=== PATIENT | female | born 1975 | race Caucasian/White ===

== ENCOUNTER → 2023-08-14 11:25 | Outpatient (BNVA) | payer OTHER, MEDICAID, SELFPAY | PROVIDERS: PCP Nurse Practitioner Family; Visit Provider Podiatrist Foot & Ankle Surgery | DX: M72.2 Plantar fascial fibromatosis (principal); M79.671 Pain in right foot | CPT/HCPCS: 73630; 99203 ==

== ENCOUNTER → 2024-01-26 10:55 | Outpatient (BNVA) | payer OTHER, MEDICAID, SELFPAY | PROVIDERS: PCP Nurse Practitioner Family; Visit Provider Specialist | DX: M25.562 Pain in left knee (principal); G89.29 Other chronic pain | CPT/HCPCS: 73560; 73565 ==

== ENCOUNTER 2024-04-19 15:11 | Outpatient (CLI) | payer MEDICAID, SELFPAY ==
--- NOTE | 2024-04-19 15:13 | MR_ITS ---
WS: [id number] MRI LEFT KNEE HISTORY: left knee pain COMPARISON: 01/26/2024 Anterior cruciate ligament: Intact. Posterior cruciate ligament: Intact. Medial collateral ligament: Intact. Posterior lateral corner structures: Intact. Medial menisci: Intact. Normal signal, size and shape. Lateral meniscus: Intact. Normal signal, size and shape. Extensor mechanism: Distal quadriceps tendon and patellar tendons are intact. Fluid and soft tissue: No joint effusion. No Nance's cyst. Osseous and articular structures: Patellofemoral compartment: Normal. Medial compartment: No significant joint space narrowing. No meniscal tear identified. There is very slight blunting of the meniscal root but no tear confirmed. Focal increased T2 signal at the meniscal root attachment. Lateral compartment: Mild fissuring and thinning of the cartilage. No marrow edema. MR/MR knee LT wo con* [id number] IMPRESSION: 1. No ACL tear. 2. No meniscal tear identified. There is very slight blunting of the meniscal root of the medial compartment but no tear is identified. There is very slight increased T2 signal at the meniscal root attachment to the tibia. If symptoms p ersist this could be an area of concern. 3. No marrow edema or fracture.
== END 2024-04-19 15:12 | disposition home or self-care (01) ==
PROVIDERS: PCP Nurse Practitioner Family; Visit Provider Specialist
DX: M25.569 Pain in unspecified knee (principal)
CPT/HCPCS: 73721

== ENCOUNTER 2024-05-21 22:00 | Emergency (ER) | payer MEDICAID, SELFPAY ==
[2024-05-21 22:17] VITALS: BP 150/90; PULSE 76; RESP 15; TEMP 36.6; O2SAT 96; BMI 31.1
[2024-05-21 22:56] LABS: Bilirubin Urine Negative (Negative); Blood Urine Negative (Negative); Glucose Urine UA Negative (Normal); Ketones Urine Negative (Negative); Leukocyte Esterase Urine Trace (Negative); Nitrate Urine Negative (Negative); Protein Urine Negative (Negative); Specific Gravity, Urine 1.007 (1.005-1.030); Urine Appearance Clear (CLEAR); Urine Color Yellow (Yellow); Urobilinogen Urine 0.2 mg/dL (Negative)
[2024-05-21 23:00] LABS: Add Urine Microscopic? YES; Bacteria Urine None Seen /hpf; Hyaline Casts Urine 0-4 /lpf; RBC Urine 0-2 /hpf (0-2); Squamous Epithelial Cell Urine 0-5 /hpf (0-5); WBC Urine 0-5 /hpf (0-5)
--- NOTE | 2024-05-21 23:22 | ED_ITS ---
Documented by User: Medardo Rene DO 05/22/24 05:17 HPI - Female Genitourinary 2 General: Chief complaint: Urogenital-Female Stated complaint: poss UTI Time Seen by Provider: 05/21/24 23:19 History of Present Illness: 48-year-old female presents to the emerg ency room with complaint of back pain and UTI symptoms. Patient states that multiple UTIs in the past she was seen 3 to 4 days ago by her primary care doctor and started on Macrobid. She states her back pain is little bit worse she has not had any hematuria no fever sweats or chills. No history of kidney stones. Associated symptoms: Deny abdominal pain Related Data Home Medications Medication Instructions Recorded Confirmed duloxetine 60 mg capsule,delayed mg PO 08/14/23 04/21/24 release esomeprazole magnesium 20 mg mg PO 08/14/23 04/21/24 capsule,delayed release estradiol 1 mg tablet mg PO 08/14/23 04/21/24 folic acid 1 mg tablet PO 08/14/23 04/21/24 lisinopril 10 tab PO 08/14/23 04/21/24 mg-hydrochlorothiazide 12.5 mg tablet Allergies Allergy/AdvReac Type Severity Reaction Status Date / Time Sulfa (Sulfonamide Allergy rash Verified 05/21/24 22:25 Antibiotics) reglan Allergy Unknown Uncoded 05/21/24 22:25 Review of Systems 2 Const: Denies: fever(s) or chills Card: Denies: chest pain Resp: Denies: dyspnea GI: Denies: abdominal pain : Reports: flank pain, dysuria and urinary frequency; Denies: urinary urgency Musc: Denies: neck pain or back pain Skin/Breast: Denies: rash PFSH ED 2 PFSH: Social History Smoking and tobacco/nicotine status: unknown if used tobacco/nicotine Physical Exam 2 Const: COMMON NORMALS: no acute distress GENERAL APPEARANCE: cooperative and comfortable ORIENTATION/CONSCIOUSNESS: Yes awake, Yes oriented to person, Yes oriented to place and Yes oriented to time HENMT: COMMON NORMALS: normocephalic, atraumatic and hearing grossly normal bilaterally HEAD & SCALP: normocephalic and atraumatic Resp: COMMON NORMALS: normal respiratory effort, No retractions, No use of accessory muscles and clear to auscultation bilaterally AUSCULTATION: clear to auscultation bilaterally Cardio: COMMON NORMALS: regular rate, regular rhythm and No murmurs present (Cardio) RATE: regular rate RHYTHM: regular rhythm GI: COMMON NORMALS: Soft to palpation and No hepatosplenomegaly present A USCULTATION: Yes normoactive bowel sounds PALPATION: Yes Soft to palpation, No Tenderness to palpation present (GI), No Guarding due to palpation present (GI) and Yes No hepatosplenomegaly present : BLADDER/KIDNEY EXAM: Yes CVA tenderness Back/Pelvis: GENERAL BACK: Yes CVA tenderness Extremity: COMMON NORMALS: normal to inspection, capillary refill normal, no clubbing, cyanosis or edema, no calf tenderness and no pedal edema Neuro: SENSORIUM/ORIENTATION: Yes oriented to person, Yes oriented to place and Yes oriented to time Skin: COMMON NORMALS: no rashes or lesions noted GENERAL SKIN EXAM: no rashes or lesions noted Course 2 Vital Signs: Vital signs: Vital Signs Temperature 97.9 F 05/21/24 22:17 Pulse Rate 78 05/22/24 01:51 Respiratory Rate 16 05/22/24 01:51 Blood Pressure 128/89 05/22/24 01:51 Pulse Oximetry 95 05/22/24 01:51 Oxygen Delivery Me thod Room Air 05/22/24 00:43 MDM - Female Medical Decision Making Care signed out to Dr. Carrero at change of shift. See final notes for diagnosis and disposition. Care transferred over to myself at shift change, lab work was reviewed, all normal except trace leukocyte esterase. Patient was given 30 mg Toradol IM. Patient will be instructed to continue her Macrobid she is currently taking and we will wait until we get a culture data back to see if she needs her antibiotics changed. Lab Data 05/21/24 23:40 05/21/24 23:40 Laboratory Results WBC 8.42 10^3/uL (3.29-11.43) 05/21/24 23:40 RBC 4.63 10^6/uL (3.85-5.65) 05/21/24 23:40 Hgb 13.20 g/dL (11.27-16.99) 05/21/24 23:40 Hct 38.5 % (36-47) 05/21/24 23:40 MCV 83.2 fl (85-98) L 05/21/24 23:40 MCH 28.5 pg (27-33) 05/21/24 23:40 MCHC 34.3 g/dL (30-55) 05/21/24 23:40 RDW 13.2 % (12.1-15.1) 05/21/24 23:40 Plt Count 368 10^3/cmm (157-399) 05/21/24 23:40 MPV 9.3 fL (7.4-10.4) 05/21/24 23:40 Neut % (Auto) 44.1 % 05/21/24 23:40 Lymph % (Auto) 41.2 % 05/21/24 23:40 [place] % (Auto) 5.1 % 05/21/24 23:40 Eos % (Auto) 7.7 % 05/21/24 23:40 Baso % (Auto) 1.5 % 05/21/24 23:40 Neut # (Auto) 3.71 10^3/uL (1.8-7.7) 05/21/24 23:40 Lymph # (Auto) 3.5 10^3/uL (0.8-4.8) 05/21/24 23:40 [place] # (Auto) 0.4 10^3/uL (0.2-0.9) 05/21/24 23:40 Eos # (Auto) 0.7 10^3/uL (0.0-0.8) 05/21/24 23:40 Baso # (Auto) 0.1 10^3/uL (0.0-0.1) 05/21/24 23:40 Nucleated RBC % (auto) 0 % 05/21/24 23:40 Nucleated RBCs # 0.0 /100WBC 05/21/24 23:40 Sodium 137 mmol/L (136-145) 05/21/24 23:40 Potassium 3.7 mmol/L (3.5-5.1) 05/21/24 23:40 Chloride 101 mmol/L (98-107) 05/21/24 23:40 Carbon Dioxide 27 mmol/L (22-29) 05/21/24 23:40 Anion Gap 12.7 (5-19) 05/21/24 23:40 BUN 14 mg/dL (6-20) 05/21/24 23:40 Creatinine 0.6 mg/dL (0.5-0.9) 05/21/24 23:40 GFR Calculation 107.2 mL/min (90-130) 05/21/24 23:40 Glucose 104 mg/dL (65-115) 05/21/24 23:40 Calculated Osmolality 285 mOsm/kg (285-295) 05/21/24 23:40 Calcium 9.2 mg/dL (8.5-10.5) 05/21/24 23:40 Total Bilirubin 0.2 mg/dL (0.15-1.2) 05/21/24 23:40 AST 17 U/L (0-32) 05/21/24 23:40 ALT 19 U/L (0-33) 05/21/24 23:40 Alkaline Phosphatase 103 U/L (35-105) 05/21/24 23:40 Total Protein 6.6 g/dL (6.6-8.7) 05/21/24 23:40 Albumin 4.2 g/dL (3.5-5.2) 05/21/24 23:40 Globulin 2.4 g/dL (1.3-4.6) 05/21/24 23:40 Urine Color Yellow (Yellow) 05/21/24 22:23 Urine Appearance Clear (CLEAR) 05/21/24 22:23 Urine pH 7.0 (5-7) 05/21/24 22:23 Ur Specific [place] 1.007 (1.005-1.030) 05/21/24 22:23 Urine Protein Negative (Negative) 05/21/24 22: Urine Glucose (UA) Negative (Normal) 05/21/24 22: Urine Ketones Negative (Negative) 05/21/24 22:23 Urine Blood Negative (Negative) 05/21/24 22: Urine Nitrate Negative (Negative) 05/21/24 22: Urine Bilirubin Negative (Negative) 05/21/24 22: Urine Urobilinogen 0.2 mg/dL (Negative) 05/21/24 22:23 Ur Leukocyte Esterase Trace (Negative) A 05/21/24 22: Urine RBC 0-2 /hpf (0-2) 05/21/24 22:23 Urine WBC 0-5 /hpf (0-5) 05/21/24 22:23 Ur Squamous Epith Cells 0-5 /hpf (0-5) 05/21/24 22:23 Amorphous Sediment Not Reportable 05/21/24 22:23 Urine Bacteria None seen /hpf (NONE) 05/21/24 22:23 Hyaline Casts 0-4 /lpf H 05/21/24 22:23 Discharge Plan Discharge Patient Disposition: Home Clinical Impression: Urinary tract infection Qualifiers: Urinary tract infection type: acute cystitis Hematuria presence: without hematuria Qualified Code(s): N30.00 - Acute cystitis without hematuria Condition: Stable Prescriptions: No Action estradiol 1 mg tablet PO esomeprazole magnesium 20 mg capsule,delayed release(DR/EC) PO folic acid 1 mg tablet PO lisinopril-hydrochlorothiazide 10-12.5 mg tablet PO duloxetine 60 mg capsule,delayed release(DR/EC) PO Discharge Orders: Discharge ED (Routine); Ordered 05/22/24 Ordered By: Maxim Carrero Referrals: Jacki Leigh APN [Primary Care Provider] - 1 week Patient Instructions: Urinary Tract Infection in Women (DC) Activity Restrictions/Additional Instructions: Evaluation ER showed trace leukocyte Estrace which is bacterial byproducts. This is the lowest amount that can be picked up. You are currently on Macrobid which should treat your urinary tract infection. A culture should be performed on your urine to see which organism grows out and therefore which antibiotic would be most appropriate. These take 2 to 3 days to get the results back you may be called with a change in antibiotics if needed.. Coding Level of Care Code ED Brusher Hand for Chg Fwd Documented by User: Maxim Carrero DO 05/22/24 03:10 HPI - Female Genitourinary 2 General: Chief complaint: Urogenital-Female Stated complaint: poss UTI Time Seen by Provider: 05/21/24 23:19 Related Data Home Medications Medication Instructions Recorded Confirmed duloxetine 60 mg capsule,delayed mg PO 08/14/23 04/21/24 release esomeprazole magnesium 20 mg mg PO 08/14/23 04/21/24 capsule,delayed release estradiol 1 mg tablet mg PO 08/14/23 04/21/24 folic acid 1 mg tablet PO 08/14/23 04/21/24 lisinopril 10 tab PO 08/14/23 04/21/24 mg-hydrochlorothiazide 12.5 mg tablet Allergies Allergy/AdvReac Type Severity Reaction Status Date / Time Sulfa (Sulfonamide Allergy rash Verified 05/21/24 22:25 Antibiotics) reglan Allergy Unknown Uncoded 05/21/24 22:25 PFSH ED 2 PFSH: Social History Smoking and tobacco/nicotine status: unknown if used tobacco/nicotine Course 2 Vital Signs: Vital signs: Vital Signs Temperature 97.9 F 05/21/24 22:17 Pulse Rate 78 05/22/24 01:51 Respiratory Rate 16 05/22/24 01:51 Blood Pressure 128/89 05/22/24 01:51 Pulse Oximetry 95 05/22/24 01:51 Oxygen Delivery Me thod Room Air 05/22/24 00:43 MDM - Female Medical Decision Making Care transferred over to myself at shift change, lab work was reviewed, all normal except trace leukocyte esterase. Patient was given 30 mg Toradol IM. Patient will be instructed to continue her Macrobid she is currently taking and we will wait until we get a culture data back to see if she needs her antibiotics changed. Lab Data 05/21/24 23:40 05/21/24 23:40 Laboratory Results WBC 8.42 10^3/uL (3.29-11.43) 05/21/24 23:40 RBC 4.63 10^6/uL (3.85-5.65) 05/21/24 23:40 Hgb 13.20 g/dL (11.27-16.99) 05/21/24 23:40 Hct 38.5 % (36-47) 05/21/24 23:40 MCV 83.2 fl (85-98) L 05/21/24 23:40 MCH 28.5 pg (27-33) 05/21/24 23:40 MCHC 34.3 g/dL (30-55) 05/21/24 23:40 RDW 13.2 % (12.1-15.1) 05/21/24 23:40 Plt Count 368 10^3/cmm (157-399) 05/21/24 23:40 MPV 9.3 fL (7.4-10.4) 05/21/24 23:40 Neut % (Auto) 44.1 % 05/21/24 23:40 Lymph % (Auto) 41.2 % 05/21/24 23:40 [place] % (Auto) 5.1 % 05/21/24 23:40 Eos % (Auto) 7.7 % 05/21/24 23:40 Baso % (Auto) 1.5 % 05/21/24 23:40 Neut # (Auto) 3.71 10^3/uL (1.8-7.7) 05/21/24 23:40 Lymph # (Auto) 3.5 10^3/uL (0.8-4.8) 05/21/24 23:40 [place] # (Auto) 0.4 10^3/uL (0.2-0.9) 05/21/24 23:40 Eos # (Auto) 0.7 10^3/uL (0.0-0.8) 05/21/24 23:40 Baso # (Auto) 0.1 10^3/uL (0.0-0.1) 05/21/24 23:40 Nucleated RBC % (auto) 0 % 05/21/24 23:40 Nucleated RBCs # 0.0 /100WBC 05/21/24 23:40 Sodium 137 mmol/L (136-145) 05/21/24 23:40 Potassium 3.7 mmol/L (3.5-5.1) 05/21/24 23:40 Chloride 101 mmol/L (98-107) 05/21/24 23:40 Carbon Dioxide 27 mmol/L (22-29) 05/21/24 23:40 Anion Gap 12.7 (5-19) 05/21/24 23:40 BUN 14 mg/dL (6-20) 05/21/24 23:40 Creatinine 0.6 mg/dL (0.5-0.9) 05/21/24 23:40 GFR Calculation 107.2 mL/min (90-130) 05/21/24 23:40 Glucose 104 mg/dL (65-115) 05/21/24 23:40 Calculated Osmolality 285 mOsm/kg (285-295) 05/21/24 23:40 Calcium 9.2 mg/dL (8.5-10.5) 05/21/24 23:40 Total Bilirubin 0.2 mg/dL (0.15-1.2) 05/21/24 23:40 AST 17 U/L (0-32) 05/21/24 23:40 ALT 19 U/L (0-33) 05/21/24 23:40 Alkaline Phosphatase 103 U/L (35-105) 05/21/24 23:40 Total Protein 6.6 g/dL (6.6-8.7) 05/21/24 23:40 Albumin 4.2 g/dL (3.5-5.2) 05/21/24 23:40 Globulin 2.4 g/dL (1.3-4.6) 05/21/24 23:40 Urine Color Yellow (Yellow) 05/21/24 22:23 Urine Appearance Clear (CLEAR) 05/21/24 22:23 Urine pH 7.0 (5-7) 05/21/24 22:23 Ur Specific [place] 1.007 (1.005-1.030) 05/21/24 22:23 Urine Protein Negative (Negative) 05/21/24 22:23 Urine Glucose (UA) Negative (Normal) 05/21/24 22:23 Urine Ketones Negative (Negative) 05/21/24 22:23 Urine Blood Negative (Negative) 05/21/24 22:23 Urine Nitrate Negative (Negative) 05/21/24 22:23 Urine Bilirubin Negative (Negative) 05/21/24 22:23 Urine Urobilinogen 0.2 mg/dL (Negative) 05/21/24 22:23 Ur Leukocyte Esterase Trace (Negative) A 05/21/24 22:23 Urine RBC 0-2 /hpf (0-2) 05/21/24 22:23 Urine WBC 0-5 /hpf (0-5) 05/21/24 22:23 Ur Squamous Epith Cells 0-5 /hpf (0-5) 05/21/24 22:23 Amorphous Sediment Not Reportable 05/21/24 22:23 Urine Bacteria None seen /hpf (NONE) 05/21/24 22:23 Hyaline Casts 0-4 /lpf H 05/21/24 22:23 All radiology interpretation(s) finalized by discharge Discharge Plan Discharge Patient Disposition: Home Clinical Impression: Urinary tract infection Qualifiers: Urinary tract infection type: acute cystitis Hematuria presence: without hematuria Qualified Code(s): N30.00 - Acute cystitis without hematuria Condition: Stable Prescriptions: No Action estradiol 1 mg tablet PO esomeprazole magnesium 20 mg capsule,delayed release(DR/EC) PO folic acid 1 mg tablet PO lisinopril-hydrochlorothiazide 10-12.5 mg tablet PO duloxetine 60 mg capsule,delayed release(DR/EC) PO Discharge Orders: Discharge ED (Routine); Ordered 05/22/24 Ordered By: Maxim Carrero Referrals: Jacki Leigh APN [Primary Care Provider] - 1 week Patient Instructions: Urinary Tract Infection in Women (DC) Activity Restrictions/Additional Instructions: Evaluation ER showed trace leukocyte Estrace which is bacterial byproducts. This is the lowest amount that can be picked up. You are currently on Macrobid which should treat your urinary tract infection. A culture should be performed on your urine to see which organism grows out and therefore which antibiotic would be most appropriate. These take 2 to 3 days to get the results back you may be called with a change in antibiotics if needed.. Coding Level of Care Code ED Brusher Hand for [place] Cohen
[2024-05-21 23:55] LABS: Basophils # 0.1 10^3/uL (0.0-0.1); Basophils % 1.5 %; Eosinophils # 0.7 10^3/uL (0.0-0.8); Eosinophils % 7.7 %; Hematocrit 38.5 % (36-47); Lymphocytes # 3.5 10^3/uL (0.8-4.8); Lymphocytes % 41.2 %; Mean Corpuscular HGB Conc 34.3 g/dL (30-55); Mean Corpuscular Hemoglobin 28.5 pg (27-33); Mean Corpuscular Volume 83.2 fl (85-98); Mean Platelet Volume 9.3 fL (7.4-10.4); Monocytes # 0.4 10^3/uL (0.2-0.9); Monocytes % 5.1 %; Neutrophils # 3.71 10^3/uL (1.8-7.7); Neutrophils % 44.1 %; Nucleated Red Blood Cells % 0 %; Platelet Count 368 10^3/cmm (157-399); Red Blood Count 4.63 10^6/uL (3.85-5.65); Red Cell Distribution Width 13.2 % (12.1-15.1); White Blood Count 8.42 10^3/uL (3.29-11.43)
[2024-05-22] VITALS: BP 127/85; PULSE 76; RESP 16; O2SAT 96
[2024-05-22 00:06] LABS: Alanine Aminotransferase 19 U/L (0-33); Albumin Level 4.2 g/dL (3.5-5.2); Alkaline Phosphatase 103 U/L (35-105); Anion Gap 12.7 (5-19); Aspartate Amino Transferase 17 U/L (0-32); Blood Urea Nitrogen 14 mg/dL (6-20); Calcium 9.2 mg/dL (8.5-10.5); Carbon Dioxide 27 mmol/L (22-29); Chloride 101 mmol/L (98-107); Creatinine Clr Calc Pharmacy 115.9634; Globulin 2.4 g/dL (1.3-4.6); Glomerular Filtration Rate 107.2 mL/min (90-130); Glucose 104 mg/dL (65-115); Osmolality Calculated 285 mOsm/kg (285-295); Potassium 3.7 mmol/L (3.5-5.1); Sodium 137 mmol/L (136-145); Total Bilirubin 0.2 mg/dL (0.15-1.2); Total Protein 6.6 g/dL (6.6-8.7)
[2024-05-22] MEDS: ketorolac 30 mg/mL INJ IVP (00:16)
[2024-05-22 00:43] VITALS: BP 129/94; PULSE 78; RESP 16; O2SAT 96
[2024-05-22 01:51] VITALS: BP 128/89; PULSE 78; RESP 16; O2SAT 95
== END 2024-05-22 01:53 | disposition home or self-care (01) ==
PROVIDERS: Physician Assistant; Emergency Provider Family Medicine; PCP Nurse Practitioner Family
DX: N30.00 Acute cystitis without hematuria (principal)
CPT/HCPCS: 36415; 80053; 81001; 85025; 96374; 99284; J1885

== ENCOUNTER 2024-11-11 13:07 | Emergency (ER) | payer MEDICAID, SELFPAY ==
[2024-11-11] VITALS (14 sets, daily range): BP systolic 92–120; BP diastolic 66–86; PULSE 71–105; RESP 16–18; TEMP 36.6; O2SAT 91–98
--- NOTE | 2024-11-11 13:10 | W.ED.ABDPA2 ---
Documented by User: [email or web address] Cox 11/11/24 19:50 HPI - Abdominal Pain General: Chief Complaint: Abdominal Pain Stated Complaint: abd pain Time Seen by Provider: 11/11/24 13:07 Source: patient Mode of arrival: EMS Limitations: no limitations History of Present Illness: Patient is a 49-year-old female who presents to the ED via EMS for chief complaint of upper abdominal pain. She states the pain started a couple of days ago and has gotten worse. She has accompanying SOB she states from the pain. Last bowel movement was approximately 2 days ago and was normal, no blood present, no straining reported. She has not had another bowel movement since and has not passed flatus since the last bowel movement. Denies increased burping. Also admits to having difficulty urinating and reports dysuria and her urine looking red this morning. She has a history of cholangiocarcinoma stage IV which she was diagnosed with in July. It has metastasized to her lung, liver and peritoneum. She is currently receiving chemo treatment, but has missed her last 2 rounds due to recent illness/pneumonia-taking Doxycycline/Augmentin and has one day left. She chronically takes opiates due to cancer related pain. MD elicited complaint: abdominal pain Pertinent past history: other (stage IV cholangiocarcinoma) Onset (ago): day(s) Pain Consistency: constant Location: Diffuse Severity: severe Quality: aching and fullness Radiation: none Migration to: no migration Exacerbating factors: nothing Relieving factors: nothing Associated Symptoms: Reports belching, constipation, hematuria and nausea; Denies chills, fever(s), hematochezia, hematemesis, melena and vomiting Related Data Home Medications ?Medication ?Instructions ?Recorded ?Confirmed duloxetine 60 mg capsule,delayed 60 mg PO BID 08/14/23 11/11/24 release pantoprazole 40 mg tablet,delayed 40 mg PO BID 08/23/24 11/11/24 release trazodone 150 mg tablet 150 mg PO BEDTIME 08/23/24 11/11/24 amoxicillin 875 mg-potassium 1 tab PO BID 11/11/24 11/11/24 clavulanate 125 mg tablet docusate sodium 100 mg capsule 100 - 400 mg PO DAILY PRN 11/11/24 11/11/24 (Colace) Constipation doxycycline hyclate 100 mg capsule 100 mg PO BID 11/11/24 11/11/24 hydrocortisone 2.5 % topical cream See Rx Instructions .Route .COMPLEX 11/11/24 11/11/24 with perineal applicator (Procto-Med HC) olanzapine 2.5 mg tablet 2.5 mg PO BEDTIME 11/11/24 11/11/24 oxycodone 10 mg tablet 10 mg PO Q4H PRN Severe Pain 11/11/24 11/11/24 (Scale Score 8-10) oxycodone 30 mg tablet,crush 30 mg PO BID 11/11/24 11/11/24 resistant,extended release 12 hr (OxyContin) potassium chloride 10 mEq 10 meq PO BID PRN low potassium 11/11/24 11/11/24 tablet,extended release(part/cryst) promethazine 12.5 mg rectal See Rx Instructions .Route 11/11/24 11/11/24 suppository .COMPLEX PRN Nausea sennosides 8.6 mg tablet (Senokot) 8.6 mg PO DAILY PRN Constipation 11/11/24 11/11/24 triamcinolone acetonide 0.1 % 1 applic topical BID PRN Skin 11/11/24 11/11/24 topical cream Irritation Allergies Allergy/AdvReac Type Severity Reaction Status Date / Time Sulfa (Sulfonamide Allergy rash Verified 08/25/24 10:51 Antibiotics) reglan Allergy Unknown Uncoded 08/25/24 10:51 Review of Systems Const: Reports: fatigue and malaise; Denies: fever(s), chills or body aches GI: Reports: abdominal pain, nausea, constipation and belching; Denies: vomiting, hematemesis, hematochezia or melena : Reports: hematuria; Denies: flank pain, difficulty voiding, vaginal bleeding or vaginal discharge Musc: Denies: neck pain, back pain, extremity pain, extremity swelling or joint swelling Skin/Breast: Denies: rash Neuro: Denies: headache(s), numbness in extremities, weakness in extremities, sensory changes or dizziness PFSH ED PFSH: Social History Smoking and tobacco/nicotine status: never used tobacco/nicotine Physical Exam Const: COMMON NORMALS: average body habitus, patient oriented x3, no limitations, alert and well nourished GENERAL APPEARANCE: cooperative ORIENTATION/CONSCIOUSNESS: Yes awake, Yes oriented to person, Yes oriented to place and Yes oriented to time HENMT: COMMON NORMALS: normocephalic and atraumatic HEAD & SCALP: normal to inspection, normocephalic and atraumatic Eye: COMMON NORMALS: no scleral icterus Neck/C-Spine: COMMON NORMALS: full ROM, no lymphadenopathy, supple and no meningeal signs Chest: COMMONS NORMALS: normal inspection of the chest Resp: COMMON NORMALS: normal respiratory effort and clear to auscultation bilaterally AUSCULTATION: clear to auscultation bilaterally Cardio: COMMON NORMALS: regular rate and regular rhythm RATE: regular rate RHYTHM: regular rhythm GI: INSPECTION: Yes abdominal distension AUSCULTATION: Yes Hypoactive bowel sounds present PALPATION: Yes Tenderness to palpation present (GI) : COMMON NORMALS: Yes no CVA tenderness BLADDER/KIDNEY EXAM: Yes no CVA tenderness Back/Pelvis: COMMON NORMALS: no CVA tenderness and thoracic and lumbar spine normal to inspection Extremity: COMMON NORMALS: normal to inspection GENERAL: Yes normal exam except as noted Neuro: COMMON NORMALS: patient oriented x3, moves all extremities, no focal motor deficits, no sensory deficits noted and gait normal SENSORIUM/ORIENTATION: Yes alert, Yes oriented to person, Yes oriented to place and Yes oriented to time MENINGEAL SIGNS: Yes no meningeal signs Skin: COMMON NORMALS: no rashes or lesions noted GENERAL SKIN EXAM: no rashes or lesions noted Course Consultations: Consultation #1: Dr. Vu-reviewed CT scan-states there is no intervention feasible from a general surgery standpoint; will come consult on the patient and place consult note Vital Signs: Vital signs: Vital Signs Temperature 97.8 F 11/11/24 13:09 Pulse Rate 61 11/12/24 02:59 Respiratory Rate 16 11/11/24 21:42 Blood Pressure 95/66 11/12/24 02:59 Pulse Oximetry 95 11/12/24 02:59 Oxygen Delivery Me thod Room Air 11/11/24 16:43 MDM - Abdominal Pain Medical Decision Making Patient is a 49-year-old female with known extensive metastatic cholangiocarcinoma (stage IV). She is currently undergoing chemotherapy by her oncology team at [facility] in [place], [place]. she is here today complaining of severe abdominal pain, inability to pass bowel or flatulence, nausea, and belching. CT scan showing extensive disease as well as a concern for descending colonic obstruction-recommendations to correlate clinically. She was consulted on by general surgery here, Dr. Gibson. He stated there was nothing from a surgical standpoint that could be done given the extensiveness of her disease. He did feel like with her clinical presentation and CT findings, this most likely represented a partial bowel obstruction although stated it was inevitable that she would probably progress to a full obstruction. Discussed placing the patient on hospice. When I mentioned this to patient she is absolutely not ready to accept this. She is adamant she wants to be transferred to [place] where her oncology team is. I told patient this would be a transfer by patient request and she might be responsible for the cost of transfer-she is agreeable to this. I spoke to her oncologist, Dr. Hoyos as well as the oncology hospitalist, Dr. Kennedy both of which would like her to go through the emergency department. I spoke to Dr. Rivera at the [facility] ED who is accepting the patient. Medical Records I reviewed the patient's medical records. Lab Data I reviewed the patient's lab results. 11/11/24 13:39 11/11/24 13:39 Labs/Radiology: Radiology Impressions Abdomen/Pelvis CT 11/11/24 13:44 IMPRESSION: 1. Omental caking, multiple abdominal and pelvic peritoneal implants. The findings consistent with known peritoneal metastatic disease. 2. Left lobe lateral segment intrahepatic biliary ductal dilatation. 3. Superior left lobe lateral segment hepatic mass. 4. Multiple additional hepatic lesions of uncertain etiology. Correlation with prior studies or MRI recommended for further evaluation. 5. Prior cholecystectomy. 6. Descending colonic functional obstruction is difficult to exclude. Clinical correlation is recommended. 7. Moderate abdominal, large volume pelvic ascites. Chest X-Ray 11/11/24 14:35 Impression: Negative chest. Laboratory Results WBC 16.84 10^3/uL (3.29-11.43) H 11/11/24 13:39 RBC 3.68 10^6/uL (3.85-5.65) L 11/11/24 13:39 Hgb 9.70 g/dL (11.27-16.99) L 11/11/24 13:39 Hct 31.0 % (36-47) L 11/11/24 13:39 MCV 84.2 fl (85-98) L 11/11/24 13:39 MCH 26.4 pg (27-33) L 11/11/24 13:39 MCHC 31.3 g/dL (30-55) 11/11/24 13:39 RDW 16.9 % (12.1-15.1) H 11/11/24 13:39 Plt Count 595 10^3/cmm (157-399) H 11/11/24 13:39 MPV 9.8 fL (7.4-10.4) 11/11/24 13:39 Neut % (Auto) 71.7 % 11/11/24 13:39 Lymph % (Auto) 16.4 % 11/11/24 13:39 Blaine % (Auto) 9.0 % 11/11/24 13:39 Eos % (Auto) 0.7 % 11/11/24 13:39 Baso % (Auto) 1.3 % 11/11/24 13:39 Neut # (Auto) 12.07 10^3/uL (1.8-7.7) H 11/11/24 13:39 Lymph # (Auto) 2.8 10^3/uL (0.8-4.8) 11/11/24 13:39 Blaine # (Auto) 1.5 10^3/uL (0.2-0.9) H 11/11/24 13:39 Eos # (Auto) 0.1 10^3/uL (0.0-0.8) 11/11/24 13:39 Baso # (Auto) 0.2 10^3/uL (0.0-0.1) H 11/11/24 13:39 Nucleated RBC % (auto) 0 % 11/11/24 13:39 Nucleated RBCs # 0.0 /100WBC 11/11/24 13:39 PT 14.00 SECONDS (12.1-14.9) 11/11/24 13:39 INR 1.01 (0.8-1.2) 11/11/24 13:39 Sodium 134 mmol/L (136-145) L 11/11/24 13:39 Potassium 3.8 mmol/L (3.5-5.1) 11/11/24 13:39 Chloride 94 mmol/L (98-107) L 11/11/24 13:39 Carbon Dioxide 23 mmol/L (22-29) 11/11/24 13:39 Anion Gap 20.8 (5-19) H 11/11/24 13:39 BUN 9 mg/dL (6-20) 11/11/24 13:39 Creatinine 0.5 mg/dL (0.5-0.9) 11/11/24 13:39 GFR Calculation 131.7 mL/min (90-130) H 11/11/24 13:39 Glucose 120 mg/dL (65-115) H 11/11/24 13:39 Calculated Osmolality 278 mOsm/kg (285-295) L 11/11/24 13:39 Lactic Acid 0.8 mmol/L (0.5-2.2) 11/11/24 13:39 Calcium 9.0 mg/dL (8.5-10.5) 11/11/24 13:39 Total Bilirubin 0.4 mg/dL (0.15-1.2) 11/11/24 13:39 AST 20 U/L (0-32) 11/11/24 13:39 ALT 10 U/L (0-33) 11/11/24 13:39 Alkaline Phosphatase 232 U/L (35-105) H 11/11/24 13:39 Total Protein 7.3 g/dL (6.6-8.7) 11/11/24 13:39 Albumin 3.2 g/dL (3.5-5.2) L 11/11/24 13:39 Globulin 4.1 g/dL (1.3-4.6) 11/11/24 13:39 Lipase 16 U/L (13-60) 11/11/24 13:39 HCG, Qual Negative (Negative) 11/11/24 13:29 Urine Color Yellow (Yellow) 11/11/24 15:18 Urine Appearance Clear (CLEAR) 11/11/24 15:18 Urine pH 6.5 (5-7) 11/11/24 15:18 Ur Specific [place] 1.012 (1.005-1.030) 11/11/24 15:18 Urine Protein Trace (Negative) A 11/11/24 15:18 Urine Glucose (UA) Negative (Normal) 11/11/24 15:18 Urine Ketones Negative (Negative) 11/11/24 15:18 Urine Blood Negative (Negative) 11/11/24 15:18 Urine Nitrate Negative (Negative) 11/11/24 15:18 Urine Bilirubin Negative (Negative) 11/11/24 15:18 Urine Urobilinogen 1.0 mg/dL (Negative) 11/11/24 15:18 Ur Leukocyte Esterase Trace (Negative) A 11/11/24 15:18 Urine RBC 0-2 /hpf (0-2) 11/11/24 15:18 Urine WBC 0-5 /hpf (0-5) 11/11/24 15:18 Ur Squamous Epith Cells 0-5 /hpf (0-5) 11/11/24 15:18 Amorphous Sediment Not Reportable 11/11/24 15:18 Urine Bacteria None seen /hpf (NONE) 11/11/24 15:18 Hyaline Casts 1.65 /lpf 11/11/24 15:18 All radiology interpretation(s) finalized by discharge Discharge Plan Discharge Patient Disposition: Xfer Short-Term Hosp Clinical Impression: Metastatic cholangiocarcinoma, Obstruction of large intestine due to peritoneal adhesions Condition: Stable Referrals: Jacki Leigh APN [Primary Care Provider, [facility]] Print Language: Macedonian Coding Level of Care Code ED Rigging Up Worker for Chg Fwd Documented by User: Medardo Rene DO 11/12/24 06:41 HPI - Abdominal Pain General: Chief Complaint: Abdominal Pain Stated Complaint: abd pain Time Seen by Provider: 11/11/24 13:07 Related Data Home Medications ?Medication ?Instructions ?Recorded ?Confirmed duloxetine 60 mg capsule,delayed 60 mg PO BID 08/14/23 11/11/24 release pantoprazole 40 mg tablet,delayed 40 mg PO BID 08/23/24 11/11/24 release trazodone 150 mg tablet 150 mg PO BEDTIME 08/23/24 11/11/24 amoxicillin 875 mg-potassium 1 tab PO BID 11/11/24 11/11/24 clavulanate 125 mg tablet docusate sodium 100 mg capsule 100 - 400 mg PO DAILY PRN 11/11/24 11/11/24 (Colace) Constipation doxycycline hyclate 100 mg capsule 100 mg PO BID 11/11/24 11/11/24 hydrocortisone 2.5 % topical cream See Rx Instructions .Route .COMPLEX 11/11/24 11/11/24 with perineal applicator (Procto-Med HC) olanzapine 2.5 mg tablet 2.5 mg PO BEDTIME 11/11/24 11/11/24 oxycodone 10 mg tablet 10 mg PO Q4H PRN Severe Pain 11/11/24 11/11/24 (Scale Score 8-10) oxycodone 30 mg tablet,crush 30 mg PO BID 11/11/24 11/11/24 resistant,extended release 12 hr (OxyContin) potassium chloride 10 mEq 10 meq PO BID PRN low potassium 11/11/24 11/11/24 tablet,extended release(part/cryst) promethazine 12.5 mg rectal See Rx Instructions .Route 11/11/24 11/11/24 suppository .COMPLEX PRN Nausea sennosides 8.6 mg tablet (Senokot) 8.6 mg PO DAILY PRN Constipation 11/11/24 11/11/24 triamcinolone acetonide 0.1 % 1 applic topical BID PRN Skin 11/11/24 11/11/24 topical cream Irritation Allergies Allergy/AdvReac Type Severity Reaction Status Date / Time Sulfa (Sulfonamide Allergy rash Verified 08/25/24 10:51 Antibiotics) reglan Allergy Unknown Uncoded 08/25/24 10:51 [facility] ED PFSH: Social History Smoking and tobacco/nicotine status: never used tobacco/nicotine Course Vital Signs: Vital signs: Vital Signs Temperature 97.8 F 11/11/24 13:09 Pulse Rate 61 11/12/24 02:59 Respiratory Rate 16 11/11/24 21:42 Blood Pressure 95/66 11/12/24 02:59 Pulse Oximetry 95 11/12/24 02:59 Oxygen Delivery Me thod Room Air 11/11/24 16:43 MDM - Abdominal Pain Medical Decision Making Patient is a 49-year-old female with known extensive metastatic cholangiocarcinoma (stage IV). She is currently undergoing chemotherapy by her oncology team at [facility] in [place], [place]. she is here today complaining of severe abdominal pain, inability to pass bowel or flatulence, nausea, and belching. CT scan showing extensive disease as well as a concern for descending colonic obstruction-recommendations to correlate clinically. She was consulted on by general surgery here, Dr. Gibson. He stated there was nothing from a surgical standpoint that could be done given the extensiveness of her disease. He did feel like with her clinical presentation and CT findings, this most likely represented a partial bowel obstruction although stated it was inevitable that she would probably progress to a full obstruction. Discussed placing the patient on hospice. When I mentioned this to patient she is absolutely not ready to accept this. She is adamant she wants to be transferred to [place] where her oncology team is. I told patient this would be a transfer by patient request and she might be responsible for the cost of transfer-she is agreeable to this. I spoke to her oncologist, Dr. Hoyos as well as the oncology hospitalist, Dr. Kennedy both of which would like her to go through the emergency department. I spoke to Dr. Rivera at the [facility] ED who is accepting the patient. Chart reviewed and patient discussed with midlevel. Agree with assessment and plan. Lab Data 11/11/24 13:39 11/11/24 13:39 Labs/Radiology: Radiology Impressions Abdomen/Pelvis CT 11/11/24 13:44 IMPRESSION: 1. Omental caking, multiple abdominal and pelvic peritoneal implants. The findings consistent with known peritoneal metastatic disease. 2. Left lobe lateral segment intrahepatic biliary ductal dilatation. 3. Superior left lobe lateral segment hepatic mass. 4. Multiple additional hepatic lesions of uncertain etiology. Correlation with prior studies or MRI recommended for further evaluation. 5. Prior cholecystectomy. 6. Descending colonic functional obstruction is difficult to exclude. Clinical correlation is recommended. 7. Moderate abdominal, large volume pelvic ascites. Chest X-Ray 11/11/24 14:35 Impression: Negative chest. Laboratory Results WBC 16.84 10^3/uL (3.29-11.43) H 11/11/24 13:39 RBC 3.68 10^6/uL (3.85-5.65) L 11/11/24 13:39 Hgb 9.70 g/dL (11.27-16.99) L 11/11/24 13:39 Hct 31.0 % (36-47) L 11/11/24 13:39 MCV 84.2 fl (85-98) L 11/11/24 13:39 MCH 26.4 pg (27-33) L 11/11/24 13:39 MCHC 31.3 g/dL (30-55) 11/11/24 13:39 RDW 16.9 % (12.1-15.1) H 11/11/24 13:39 Plt Count 595 10^3/cmm (157-399) H 11/11/24 13:39 MPV 9.8 fL (7.4-10.4) 11/11/24 13:39 Neut % (Auto) 71.7 % 11/11/24 13:39 Lymph % (Auto) 16.4 % 11/11/24 13:39 Blaine % (Auto) 9.0 % 11/11/24 13:39 Eos % (Auto) 0.7 % 11/11/24 13:39 Baso % (Auto) 1.3 % 11/11/24 13:39 Neut # (Auto) 12.07 10^3/uL (1.8-7.7) H 11/11/24 13:39 Lymph # (Auto) 2.8 10^3/uL (0.8-4.8) 11/11/24 13:39 Blaine # (Auto) 1.5 10^3/uL (0.2-0.9) H 11/11/24 13:39 Eos # (Auto) 0.1 10^3/uL (0.0-0.8) 11/11/24 13:39 Baso # (Auto) 0.2 10^3/uL (0.0-0.1) H 11/11/24 13:39 Nucleated RBC % (auto) 0 % 11/11/24 13:39 Nucleated RBCs # 0.0 /100WBC 11/11/24 13:39 PT 14.00 SECONDS (12.1-14.9) 11/11/24 13:39 INR 1.01 (0.8-1.2) 11/11/24 13:39 Sodium 134 mmol/L (136-145) L 11/11/24 13:39 Potassium 3.8 mmol/L (3.5-5.1) 11/11/24 13:39 Chloride 94 mmol/L (98-107) L 11/11/24 13:39 Carbon Dioxide 23 mmol/L (22-29) 11/11/24 13:39 Anion Gap 20.8 (5-19) H 11/11/24 13:39 BUN 9 mg/dL (6-20) 11/11/24 13:39 Creatinine 0.5 mg/dL (0.5-0.9) 11/11/24 13:39 GFR Calculation 131.7 mL/min (90-130) H 11/11/24 13:39 Glucose 120 mg/dL (65-115) H 11/11/24 13:39 Calculated Osmolality 278 mOsm/kg (285-295) L 11/11/24 13:39 Lactic Acid 0.8 mmol/L (0.5-2.2) 11/11/24 13:39 Calcium 9.0 mg/dL (8.5-10.5) 11/11/24 13:39 Total Bilirubin 0.4 mg/dL (0.15-1.2) 11/11/24 13:39 AST 20 U/L (0-32) 11/11/24 13:39 ALT 10 U/L (0-33) 11/11/24 13:39 Alkaline Phosphatase 232 U/L (35-105) H 11/11/24 13:39 Total Protein 7.3 g/dL (6.6-8.7) 11/11/24 13:39 Albumin 3.2 g/dL (3.5-5.2) L 11/11/24 13:39 Globulin 4.1 g/dL (1.3-4.6) 11/11/24 13:39 Lipase 16 U/L (13-60) 11/11/24 13:39 HCG, Qual Negative (Negative) 11/11/24 13:29 Urine Color Yellow (Yellow) 11/11/24 15:18 Urine Appearance Clear (CLEAR) 11/11/24 15:18 Urine pH 6.5 (5-7) 11/11/24 15:18 Ur Specific [place] 1.012 (1.005-1.030) 11/11/24 15:18 Urine Protein Trace (Negative) A 11/11/24 15:18 Urine Glucose (UA) Negative (Normal) 11/11/24 15:18 Urine Ketones Negative (Negative) 11/11/24 15:18 Urine Blood Negative (Negative) 11/11/24 15:18 Urine Nitrate Negative (Negative) 11/11/24 15:18 Urine Bilirubin Negative (Negative) 11/11/24 15:18 Urine Urobilinogen 1.0 mg/dL (Negative) 11/11/24 15:18 Ur Leukocyte Esterase Trace (Negative) A 11/11/24 15:18 Urine RBC 0-2 /hpf (0-2) 11/11/24 15:18 Urine WBC 0-5 /hpf (0-5) 11/11/24 15:18 Ur Squamous Epith Cells 0-5 /hpf (0-5) 11/11/24 15:18 Amorphous Sediment Not Reportable 11/11/24 15:18 Urine Bacteria None seen /hpf (NONE) 11/11/24 15:18 Hyaline Casts 1.65 /lpf 11/11/24 15:18 Discharge Plan Discharge Patient Disposition: Xfer Short-Term Hosp Clinical Impression: Metastatic cholangiocarcinoma, Obstruction of large intestine due to peritoneal adhesions Condition: Stable Referrals: Jacki Leigh APN [Primary Care Provider, Family [facility]] Print Language: Macedonian Coding Level of Care Code ED Rigging Up Worker for Kashmir Cohen
--- NOTE | 2024-11-11 13:44 | CTR_ITS ---
PROCEDURE INFORMATION: Exam: CT Abdomen And Pelvis With Contrast Exam date and time: 11/11/2024 3:20 PM Age: 49 years old Clinical indication: Abdominal pain; Generalized; Prior surgery; Surgery date: 6+ months; Surgery type: Gb; Additional info: Ab pain; Known cholangiocarcinoma/peritoneal carcinomatosis TECHNIQUE: Imaging protocol: Computed tomography of the abdomen and pelvis with contrast. Radiation optimization: All CT scans at this facility use at least one of these dose optimization techniques: automated exposure control; mA and/or kV adjustment per patient size (includes targeted exams where dose is matched to clinical indication); or iterative reconstruction. Contrast material: OMNIPAQUE 350; Contrast volume: 100 ml; Contrast route: INTRAVENOUS (IV); COMPARISON: CR XR chest 1V portable [id number] 11/11/2024 2:41 PM RADIATION DOSE METRICS: Total DLP (mGy-cm): 702.97 FINDINGS: Esophagus: Mild fluid and gas distension of the distal thoracic esophagus, without obstructing lesion identified. Liver: Superior left lobe lateral segment hepatic mass, measuring approximately 3.8 x 5.3 x 3.9 cm. Hepatic segment 6 low-attenuation lesion measuring 8.5 mm. Multiple left lobe additional low-attenuation lesions. Gallbladder and biliary ducts: Left lobe lateral segment intrahepatic biliary ductal dilatation. The gallbladder is surgically absent, with metallic clips in the gallbladder fossa. No extrahepatic biliary ductal dilatation or calculus. Pancreas: Normal. No ductal dilation. Spleen: Normal. No splenomegaly. Adrenal glands: Normal. No mass. Kidneys and ureters: Normal. No hydronephrosis. Stomach and bowel: Decompressed distal transverse and rectosigmoid colon, transition in the lateral left mid abdomen without cause identified (series 6, image 23; series 7, image 12). Gaseous distension of the transverse colon and splenic flexure, gas and stool distension of the ascending colon. Appendix: The vermiform appendix is not identified on this examination. There is, however, no pericecal abnormality to suggest appendicitis. Intraperitoneal space: Omental caking, multiple abdominal (occluding lesser sac ascites) and pelvic peritoneal implants. Moderate abdominal, large volume pelvic ascites. No pneumoperitoneum. Vasculature: Calcified phleboliths are present in the lower pelvis bilaterally. Lymph nodes: No enlarged lymph nodes. Urinary bladder: The urinary bladder is drained by a Marcano catheter. The urinary bladder is decompressed and difficult to assess. Reproductive: Unremarkable as visualized. Bones/joints: No destructive bony process identified. Soft tissues: Unremarkable. CT/CT abdomen pelvis w con* [id number] IMPRESSION: 1. Omental caking, multiple abdominal and pelvic peritoneal implants. The findings consistent with known peritoneal metastatic disease. 2. Left lobe lateral segment intrahepatic biliary ductal dilatation. 3. Superior left lobe lateral segment hepatic mass. 4. Multiple additional hepatic lesions of uncertain etiology. Correlation with prior studies or MRI recommended for further evaluation. 5. Prior cholecystectomy. 6. Descending colonic functional obstruction is difficult to exclude. Clinical correlation is recommended. 7. Moderate abdominal, large volume pelvic ascites.
[2024-11-11 14:00] LABS: Basophils # 0.2 10^3/uL (0.0-0.1); Basophils % 1.3 %; Eosinophils # 0.1 10^3/uL (0.0-0.8); Eosinophils % 0.7 %; Lymphocytes # 2.8 10^3/uL (0.8-4.8); Lymphocytes % 16.4 %; Mean Corpuscular HGB Conc 31.3 g/dL (30-55); Mean Corpuscular Hemoglobin 26.4 pg (27-33); Mean Corpuscular Volume 84.2 fl (85-98); Mean Platelet Volume 9.8 fL (7.4-10.4); Monocytes # 1.5 10^3/uL (0.2-0.9); Neutrophils # 12.07 10^3/uL (1.8-7.7); Neutrophils % 71.7 %; Nucleated Red Blood Cells % 0 %; Platelet Count 595 10^3/cmm (157-399); Red Blood Count 3.68 10^6/uL (3.85-5.65); Red Cell Distribution Width 16.9 % (12.1-15.1); White Blood Count 16.84 10^3/uL (3.29-11.43)
[2024-11-11] MEDS: ondansetron 2 mg/ML SDV 2 mL 4 MG IVP (14:07)
[2024-11-11] MEDS: diphenhydrAMINE 50 mg/mL SDV 1mL IVP (14:07)
[2024-11-11] MEDS: methylPREDNISolone sod succ 125 mg/2 mL INJ 60 MG IVP (14:07)
[2024-11-11] MEDS: morphine 4 mg/mL SDV 1 mL IVP ×2 (14:07→19:14)
[2024-11-11] MEDS: sodium chloride 0.9% 1,000 ML 999 ML IV (14:07)
[2024-11-11 14:20] LABS: Alanine Aminotransferase 10 U/L (0-33); Albumin Level 3.2 g/dL (3.5-5.2); Alkaline Phosphatase 232 U/L (35-105); Anion Gap 20.8 (5-19); Aspartate Amino Transferase 20 U/L (0-32); Blood Urea Nitrogen 9 mg/dL (6-20); Carbon Dioxide 23 mmol/L (22-29); Chloride 94 mmol/L (98-107); Globulin 4.1 g/dL (1.3-4.6); Glomerular Filtration Rate 131.7 mL/min (90-130); Glucose 120 mg/dL (65-115); Lipase 16 U/L (13-60); Osmolality Calculated 278 mOsm/kg (285-295); Potassium 3.8 mmol/L (3.5-5.1); Sodium 134 mmol/L (136-145); Total Bilirubin 0.4 mg/dL (0.15-1.2); Total Protein 7.3 g/dL (6.6-8.7)
--- NOTE | 2024-11-11 14:35 | XR_ITS ---
WS: [id number] Portable AP upright chest, 11/11/2024 Clinical Data: pain Comparison: None. Findings: No nodules, masses or effusions are seen. The heart is normal. The pulmonary vascularity is not increased. No pneumonia or pneumothorax is seen. There is an infusion catheter entering the right internal jugular vein and ending in the superior vena cava. There is a small recording device overlying the left chest. XR/XR chest 1V portable [id number] Impression: Negative chest.
[2024-11-11 14:38] LABS: HCG, Serum Qual Negative (Negative)
[2024-11-11] MEDS: HYDROmorphone 0.5 MG/0.5 ML INJ 1 MG IVP ×2 (15:17→16:48)
[2024-11-11] MEDS: iohexol 350 mg/mL 500 mL Btl (per mL) IV (15:22)
[2024-11-11 15:25] LABS: Bilirubin Urine Negative (Negative); Blood Urine Negative (Negative); Glucose Urine UA Negative (Normal); Ketones Urine Negative (Negative); Leukocyte Esterase Urine Trace (Negative); Nitrate Urine Negative (Negative); Protein Urine Trace (Negative); Specific Gravity, Urine 1.012 (1.005-1.030); Urine Appearance Clear (CLEAR); Urine Color Yellow (Yellow); pH Urine 6.5 (5-7)
[2024-11-11 15:28] LABS: Add Urine Microscopic? YES; Bacteria Urine None Seen /hpf; Hyaline Casts Urine 1.65 /lpf; RBC Urine 0-2 /hpf (0-2); Squamous Epithelial Cell Urine 0-5 /hpf (0-5); WBC Urine 0-5 /hpf (0-5)
[2024-11-11 16:30] LABS: UA Slide Review UA Slide Review Perf
[2024-11-11] MEDS: ALPRAZolam 0.5 mg Tablet PO (17:06)
[2024-11-11 17:23] LABS: INR 1.01 (0.8-1.2)
--- NOTE | 2024-11-11 17:39 | PM.CONSULT ---
Providers/Reason For Consult Consulting Physician/Specialty*: dr. muniz gen surg Reason for Consult*: bowel obstruction Primary Care Provider: Jacki Leigh APN History of Present Illness History of Present Illness Buffy Kelley is a 49 year old female with metastatic cholangiocarcinoma with carcinomatosis who came to ED for worsening abdominal pain. Radiology read CT AP mentions descending colonic functional obstruction is difficult to exclude. Clinical correlation is recommended . There is air in the rectum and while the colon is distended, I do not see an obvious colonic obstruction. The patient reports no emesis, reports not passing gas today, last BM friday. On exam abdomen is benign, distended. Patient being treated with chemo at OSH near [place]. Medications/Allergies Home Medications ?Medication ?Instructions ?Recorded ?Confirmed ?Last Taken ?Type duloxetine 60 mg capsule,delayed 60 mg PO BID 08/14/23 11/11/24 11/11/24 History release pantoprazole 40 mg tablet,delayed 40 mg PO BID 08/23/24 11/11/24 11/11/24 History release trazodone 150 mg tablet 150 mg PO BEDTIME 08/23/24 11/11/24 11/10/24 History amoxicillin 875 mg-potassium 1 tab PO BID 11/11/24 11/11/24 11/11/24 History clavulanate 125 mg tablet docusate sodium 100 mg capsule 100 - 400 mg PO DAILY PRN 11/11/24 11/11/24 Unknown History (Colace) Constipation doxycycline hyclate 100 mg capsule 100 mg PO BID 11/11/24 11/11/24 11/11/24 History hydrocortisone 2.5 % topical cream See Rx Instructions .Route .COMPLEX 11/11/24 11/11/24 Unknown History with perineal applicator (Procto-Med HC) olanzapine 2.5 mg tablet 2.5 mg PO BEDTIME 11/11/24 11/11/24 11/10/24 History oxycodone 10 mg tablet 10 mg PO Q4H PRN Severe Pain 11/11/24 11/11/24 11/11/24 History (Scale Score 8-10) oxycodone 30 mg tablet,crush 30 mg PO BID 11/11/24 11/11/24 11/11/24 History resistant,extended release 12 hr (OxyContin) potassium chloride 10 mEq 10 meq PO BID PRN low potassium 11/11/24 11/11/24 Unknown History tablet,extended release(part/cryst) promethazine 12.5 mg rectal See Rx Instructions .Route 11/11/24 11/11/24 Unknown History suppository .COMPLEX PRN Nausea sennosides 8.6 mg tablet (Senokot) 8.6 mg PO DAILY PRN Constipation 11/11/24 11/11/24 Unknown History triamcinolone acetonide 0.1 % 1 applic topical BID PRN Skin 11/11/24 11/11/24 Unknown History topical cream Irritation Allergies Allergy/AdvReac Type Severity Reaction Status Date / Time Sulfa (Sulfonamide Allergy rash Verified 08/25/24 10:51 Antibiotics) reglan Allergy Unknown Uncoded 08/25/24 10:51 PFSH Acute PFSH: Social History Smoking and tobacco/nicotine status: never used tobacco/nicotine Vitals/I&O/Wt Last Vital Signs Temp 97.8 F 11/11/24 13:09 Pulse 103 H 11/11/24 16:43 Resp 16 11/11/24 16:43 BP 102/70 11/11/24 16:43 Pulse Ox 91 11/11/24 16:43 O2 Del Method Room Air 11/11/24 16:43 Physical Exam Narrative: Unlabored breathing RA RRR Abdomen soft, distended, non peritonitic Urinary Catheter Management: Marcano: Cath Placed During This Visit: yes Urinary Catheter Date of Insertion: 11/11/24 Urinary Catheter Time of Insertion: 15:25 Data 11/11/24 13:39 11/11/24 13:39 A&P Assessment and plan (1) Metastatic cholangiocarcinoma: Plan 49yo female with end stage cholangiocarcinoma. ER consulted surgery for inability to rule out a colonic obstruction. I had an extensive discussion with the patient. It appears she is developing a malignant partial bowel obstruction. Due to the nature of her advanced disease, surgical intervention is not indicated as in this setting it would be futile. A few specialized centers in the country could offer HIPEC and debulking, however, patients with cholangiocarcinoma are not typically good candidates for this. Most patients in her situation are better served with hospice care, but she is not open to this currently. Patient wishes to be transferred to [place] PDMP PDMP Reviewed: Not Reviewed Coding Level of Care Code 58573 Diagnoses Metastatic cholangiocarcinoma C22.1
[2024-11-11 19:29] LABS: Lactic Sepsis W/Reflex 0.8 mmol/L (0.5-2.2)
[2024-11-11] MEDS: duloxetine 60 mg Capsule PO (21:42)
[2024-11-11] MEDS: OLANZapine 5 mg TABLET 2.5 MG PO (21:42)
[2024-11-11] MEDS: HYDROmorphone 0.5 MG/0.5 ML INJ IVP (21:42)
[2024-11-11] MEDS: oxyCODONE-APAP 10-325 mg Tablet 1 TAB PO (21:42)
[2024-11-11] MEDS: pantoprazole DR 40 mg Tablet PO (21:42)
[2024-11-11] MEDS: trazodone 50 mg Tablet 150 MG PO (21:43)
[2024-11-12] VITALS (7 sets, daily range): BP systolic 90–99; BP diastolic 66–76; PULSE 61–71; O2SAT 92–96
--- NOTE | 2024-11-12 08:53 | PC.NURSE ---
per [facility] in [facility]; needing to have patient's images transferred via cloud; ER UC informed.
== END 2024-11-12 02:58 | disposition short-term general hospital (02) ==
PROVIDERS: Emergency Provider Physician Assistant; PCP Nurse Practitioner Family
DX: C78.6 Secondary malignant neoplasm of retroperitoneum and peritoneum (principal); K56.50 Intestinal adhesions [bands], unspecified as to partial versus complete obstruction
CPT/HCPCS: 36415; 51702; 71045; 74177; 80053; 81001; 83605; 83690; 84703; 85025; 85610; 96374; 96375; 96376; 99285; J1171; J1200; J2270; J2405; J2919; J7030; J9999